=== PATIENT | male | born 1960 | race Caucasian/White ===

== ENCOUNTER → 2017-06-07 | Outpatient (CLI) | payer BC | END | disposition home or self-care (01) | LOC: GMAB 10:43 | PROVIDERS: ATTEND Family Medicine | DX: Z00.01 Encounter for general adult medical examination with abnormal findings (principal) ==

== ENCOUNTER → 2018-03-19 | Outpatient (CLI) | payer OTHER ==
--- NOTE | 2018-03-19 15:44 | MRI ---
EXAM DESCRIPTION: Lumbar Spine w/o Contrast : Magnetic Resonance Imaging. CLINICAL HISTORY: SCIATICA COMPARISON: CT scan abdomen and pelvis without and with IV contrast. TECHNIQUE: Multiplanar, multiple standard sequences, non contrast MRI, lumbar spine. FINDINGS: Transitional appearance of the lumbar sacral spine. Based upon ribs that are visible on the sagittal images, and on axial images on the prior abdominal pelvic CT scan, the L5-S1 level is determined to be seen on the T2 sequence axial 501, image 6. The S1 sacral segment is partially lumbarized with a rudimentary S1-2 disc on the same axial sequence, image 3. These designations should be confirmed by clinical history and examination and comparison with AP thoracic spine for rib counting purposes. S1-2 foramina bilaterally are lumbarized. Arthrosis in the right S1-S2 facet with adjacent soft tissue edema. L5-S1: Trace anterolisthesis with disc degeneration. Arthrosis of the right facet and flavum ligament hypertrophy and posterior soft tissue edema. 8 mm synovial cyst impressing on the right thecal sac and the right S1 nerve visit enters the right subarticular recess which is also narrowed. Minimal shift of the thecal sac to the left of midline. Left foraminal stenosis and moderate right foraminal narrowing. Near stenosis of the right paracentral canal. Marrow edema in the right pedicle. L4-5: Disc desiccation with disc space maintained. No bulging. Minimal arthrosis of the facets and hypertrophy of the flavum ligaments. Mild to moderate canal narrowing. Moderate foraminal narrowing. Marrow edema in the L4 right pedicle. L3-4: Disc desiccation with disc space maintained. Anterior bulging with spurs and Modic type II endplate reactive changes on the superior L4 endplate. Minimal effusion in the right facet joint. Mild canal narrowing interpreted to be due to shortened pedicles. Moderate left foraminal narrowing and mild right foraminal narrowing. L2-3: Normal signal in the disc with anterior disc space loss and hypertrophic bone changes. No posterior bulging. Moderate right foraminal narrowing and mild left foraminal narrowing. L1-2: Disc space preserved with normal signal in the disc. Anterior right side disc bulge no posterior bulge. Posterior elements unremarkable. Canal and foramina are patent. Conus terminates at this level. T12-L1: Normal signal in the disc with disc space preserved. Posterior elements unremarkable. Canal and foramina are patent. No significant problems with alignment. Paravertebral soft tissues unremarkable.. Otherwise normal marrow signal in the remaining vertebral bodies and the posterior elements. Vertebral bodies are not compressed at any level. IMPRESSION: 1. Transitional lumbosacral segment is presumed to be a lumbarized S1 segment for the purposes of this report. This is based upon visualization of ribs on this study and prior abdominal pelvic CT scan. Consider correlation with AP thoracic spine radiographs for rib counting purposes. 2. Inflammatory changes in the right L5-S1 facet joint with synovial cyst impressing on the right thecal sac and descending right S1 nerve in the canal and the lateral recess. Borderline right paracentral canal stenosis. Bilateral foraminal bony morphology with bulging disc resulting in left foraminal stenosis. Marrow edema in the right L5 pedicle which could be stress related. 3. Minimal arthrosis of the facets and hypertrophy of the flavum ligaments. Moderate foraminal narrowing. Marrow edema in the right L4 pedicle. 4. Anterior disc bulging and spondylosis at multiple levels. Moderate left foraminal narrowing L3-4 and moderate right foraminal narrowing L2-3. Electronically signed by: Cedric Lazo MD 03/19/2018 3:43 PM CDT
--- NOTE | 2018-03-20 14:53 | MRI ---
EXAM DESCRIPTION: MRI right hip CLINICAL HISTORY: Right hip pain. Sciatica COMPARISON: None. TECHNIQUE: Multiplanar, multisequence MR images of the right hip FINDINGS: Nonspherical anterior superior femoral head neck junction predisposing to femoroacetabular impingement. Minimal osseous edema anteriorly likely impingement related Tear of the labrum anterior superior with a small cleft of high signal undermining the base of the labrum. Blunting of the anterior superior labrum. Superior lateral and posterior labrum intact No full-thickness chondrosis or chronic osteochondral lesion of the femoral head or acetabulum. No osseous edema. Minimal joint fluid Tendinosis and chronic interstitial insertional partial tear of the gluteus minimus and gluteus medius tendon insertions on the greater trochanter. Trochanteric bursal edema without fluid. Remaining tendon attachments to the femur are normal. Interval chronic common hamstring tendinosis No pelvic soft tissue mass lesion, adenopathy or free fluid. Central prostate hypertrophy. 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 Tear of the anterior superior labrum Chronic tendinosis and interstitial partial tear of the gluteus minimus and gluteus medius insertion Electronically signed by: Paco Soliman MD 03/20/2018 2:52 PM CDT
== END ==
LOC: MRI 13:03
PROVIDERS: ATTEND Family Medicine
DX: M54.31 Sciatica, right side (principal); M51.26 Other intervertebral disc displacement, lumbar region; M71.38 Other bursal cyst, other site; M47.896 Other spondylosis, lumbar region

== ENCOUNTER 2018-04-05 18:46 | Emergency (ER) | payer OTHER ==
--- NOTE | 2018-04-05 19:20 | ED.PDOC ---
History of Present Illness - General Chief Complaint: Back Pain or Injury Stated Complaint: low back pain, and unable to void Time Seen by Provider: 04/05/18 19:15 Source: patient Exam Limitations: no limitations - History of Present Illness Timing/Duration: other - two weeks Severity: severe Improving Factors: movement - pt urinates well during the day when active Worsening Factors: rest - has urinary retention symptoms at night with incomplete emptying Associated Symptoms: other - has radicular pain into R leg since January 2018. Denies numbness to groin or urinary incontinence Home Medications: Ambulatory Orders Methylprednisolone [Medrol Dose Gregory] 4 mg PO DAILY 6 Days #21 tab 04/05/18 Tamsulosin HCl [Flomax] 0.4 mg PO BEDTIME #14 cap 04/05/18 Review of Systems - Review of Systems Constitutional: Denies: fever, weakness EENTM: States: no symptoms reported Respiratory: States: no symptoms reported Cardiology: States: no symptoms reported Gastrointestinal/Abdominal: Denies: abdominal pain, constipation, diarrhea, nausea Genitourinary: States: see HPI. Denies: discharge, dysuria Musculoskeletal: States: no symptoms reported Skin: States: no symptoms reported Neurological: States: see HPI, numbness - in R lower leg intermittantly Endocrine: States: no symptoms reported Hematologic/Lymphatic: States: no symptoms reported Past Medical History (General) - Patient Medical History Hx Hypertension: Yes Hx Diabetes: Yes Surgical History: no surgical history - Vaccination History Hx Tetanus, Diphtheria Vaccination: No Hx Influenza Vaccination: No Hx Pneumococcal Vaccination: No - Social History Hx Tobacco Use: Yes Hx Alcohol Use: Yes - Triage Comment ED Triage Comment: Pt reports having chronic low back pain that is caused by a cyst located in his l4-l5 area of back. Pt has chronic pain, numbness and tingling down his legs at rest. Now he states it is becoming harder to void. He is having to strain to urinate and is afraid to cause any more injury by straining. Pt is scheduled to have cyst removed in a couple of weeks. Pt just requesting something to help him void with ease. Pt stated that during daily activities he has no pain, however at night when he goes to bed, pain increases and is very hard to relax and get comfortable. He is awake every hr of night due to pain. Family Medical History - Family History Father Hx Family Diabetes: Yes Hx Family Cancer: Yes Physical Exam - Physical Exam General Appearance: Alert, Anxious Gastrointestinal/Abdominal: non tender Back Exam: normal inspection, no CVA tenderness, no vertebral tenderness Extremity: non-tender, normal inspection, no pedal edema, no calf tenderness Neurologic: alert, normal mood/affect, oriented x 3, other - no sensory deficit in legs, normal strength in bilat legs to dorsiflexion and plantar flexion DTR: 1+: Achilles, right, 2+: Patellar, right Skin Exam: normal color, warm/dry Lymphatic: no adenopathy Departure - Departure Clinical Impression: Urinary bladder disorder Sciatica Qualifiers: Laterality: right Qualified Code(s): M54.31 - Sciatica, right side Disposition: Discharge to Home or Self Care Condition: Fair Departure Forms: ED Discharge - Pt. Copy, Patient Portal Self Enrollment Instructions: DI for Low Back Pain Referrals: IDA LOO MD [Primary Care Provider] - 1-2 Weeks Prescriptions: Methylprednisolone [Medrol Dose Gregory] 4 mg PO DAILY 6 Days #21 tab Tamsulosin HCl [Flomax] 0.4 mg PO BEDTIME #14 cap Home Medications: Ambulatory Orders Methylprednisolone [Medrol Dose Gregory] 4 mg PO DAILY 6 Days #21 tab 04/05/18 Tamsulosin HCl [Flomax] 0.4 mg PO BEDTIME #14 cap 04/05/18
[2018-04-05] MEDS ORDERED: TAMSULOSIN 0.4 MG CAP PO ONE (19:57)
[2018-04-05 20:39] VITALS: BP 142/89; TEMP 94.6; O2SAT 96
== END 2018-04-05 20:10 | disposition home or self-care (01) ==
LOC: ER 18:46
DX: N32.9 Bladder disorder, unspecified (principal); M54.41 Lumbago with sciatica, right side; R33.9 Retention of urine, unspecified; G89.29 Other chronic pain; E11.9 Type 2 diabetes mellitus without complications; I10 Essential (primary) hypertension

== ENCOUNTER → 2018-05-31 | Outpatient (CLI) | payer OTHER | LOC: GMAE 10:46 | PROVIDERS: ATTEND Family Medicine | DX: Z00.01 Encounter for general adult medical examination with abnormal findings (principal) ==

== ENCOUNTER → 2018-07-30 | Outpatient (CLI) | payer OTHER ==
--- NOTE | 2018-07-31 08:34 | MRI ---
EXAM DESCRIPTION: Lumbar Spine w/o Contrast : Magnetic Resonance Imaging. CLINICAL HISTORY: SYNOVIAL CYST OF LUMBAR SPINE COMPARISON: MRI scan lumbar spine 03/19/2018. TECHNIQUE: Multiplanar, multiple standard sequences, non contrast MRI, lumbar spine. FINDINGS: Based on prior MRI scan, the L5-S1 disc space is visualized on axial T2 series 501, image 8. Rudimentary S1-S2 disc is visualized on the same axial series, image 3. Postoperative appearance of the right L5-S1 facet with synovial cyst removed. Granulation tissue noted around the facet and the posterior surgical bed, hyperintense on STIR sagittal more than T2 sequences. No fluid collection. Minimal thickening of the left flavum ligament with normal left facet. Grade 1 anterolisthesis again noted, 2 mm. Desiccation of the disc with posterior broad-based bulge. AP canal diameter 11 mm. Moderate to severe narrowing of the right foramen with posterior granulation tissue. Also moderate to severe narrowing left foramen. Hyperintense STIR signal bilateral L5 pedicles and partially in the bilateral S1 pedicles. The signal in the left S1 and L5 pedicles is new since the prior study. L4-5: Mild disc desiccation with disc space preserved. Minimal bulge of the disc into the bilateral foramina with moderate narrowing more narrowing left than right. AP canal diameter 13 mm. Flavum ligament hypertrophy. L3-4: Disc desiccation and disc space preserved. Anterior disc bulge with anterior endplate spurs and Modic type II endplate reactive changes. Posterior flavum ligament hypertrophy. Moderate narrowing left foramen with disc bulging and abutting the nerve root. Mild to moderate narrowing right foramen. AP canal diameter 13 mm. L2-3: Disc desiccation with disc space preserved. Anterior disc bulge and anterior spurs. Mild bilateral foraminal narrowing and mild canal narrowing. L1-L2: Disc space preserved with normal signal in the disc. Minimal anterior bulge to the right of midline but no posterior bulge. Posterior elements are unremarkable. Canal and foramina are patent. Conus terminates at this level. T12-L1: Normal signal in the disc with disc space preserved. Posterior elements unremarkable. Canal and foramina are patent. Minimal curvature. Paravertebral soft tissues unremarkable except for postsurgical changes abutting the right L5-S1 facet.. Otherwise normal marrow signal in the remaining vertebral bodies and the posterior elements. Vertebral bodies are not compressed at any level. IMPRESSION: 1. Again noted is partially lumbarized S1 segment with S1-S2 rudimentary disc. Edema like signal in the left S1 and left L5 pedicles new since the prior study and could represent stress injury. 2. Large synovial cyst seen previously originating from the right L5-S1 facet has been excised. Postsurgical changes in the facet and in the adjacent surgical bed. No definite fluid collections. 3. Again noted is multiple levels of foraminal narrowing, L5-S1, L4-5, and L3-4, more left than right with granulation tissue encroaching on the left L5 nerve root in the L5-S1 foramen. Disc bulge encroaching on the left foramina and associated nerve root at L4-5 and L3-4. Similar findings on the prior study. Electronically signed by: Cedric Lazo MD 07/31/2018 8:31 AM [facility]
== END ==
LOC: MRI 10:55
PROVIDERS: ATTEND Anesthesiology Pain Medicine
DX: M71.38 Other bursal cyst, other site (principal); M51.86 Other intervertebral disc disorders, lumbar region; Z98.890 Other specified postprocedural states

== ENCOUNTER → 2018-10-03 | Outpatient (CLI) | payer OTHER ==
--- NOTE | 2018-10-04 07:00 | RAD ---
EXAM DESCRIPTION: Lumbar Spine 3 Views CLINICAL HISTORY: 58 years Male, SYNOVIAL CYST LUMBAR SPINE COMPARISON: MRI July 30, 2018 FINDINGS: Three views of the lumbar spine show no vertebral body fracture or subluxation. There are marginal osteophytes at multiple levels in the lumbar spine with mild disc space narrowing L5-S1. Spinous and transverse processes are intact. Transitional anatomy is noted at the lumbosacral junction with left-sided pseudoarthrosis formation. The sacroiliac joints are unremarkable. IMPRESSION: Mild multilevel degenerative changes without vertebral body fracture or subluxation. Electronically signed by: Adolph Gleason MD 10/04/2018 6:58 AM CDT
== END ==
LOC: RAD 09:21
PROVIDERS: ATTEND Neurological Surgery
DX: M71.38 Other bursal cyst, other site (principal); M51.36 Other intervertebral disc degeneration, lumbar region

== ENCOUNTER 2018-12-26 05:50 | Day surgery (SDC) | payer OTHER ==
[2018-12-26] MEDS ORDERED: LACTATED RINGERS 1,000 ML ONE (06:07)
[2018-12-26] MEDS ORDERED: PROPOFOL 200 MG/20 ML VIAL IV ONE (07:00)
[2018-12-26] MEDS ORDERED: LIDOCAINE 1% 10 ML VIAL INJ ONE (07:00)
[2018-12-26] MEDS ORDERED: LACTATED RINGERS 1,000 ML IVS ONE (10:50)
[2018-12-26 14:37] VITALS: BP 129/69; TEMP 97.2; O2SAT 98
--- NOTE | 2018-12-27 08:02 | OP ---
DATE OF PROCEDURE: 12/26/18 PREOPERATIVE DIAGNOSIS: 1. Family history of colonic polyps in his father. This is the patient's first colonoscopy. POSTOPERATIVE DIAGNOSIS: 1. Suboptimal prep. 2. External hemorrhoids and skin tags. PROCEDURE: 1. Colonoscopy. SURGEON: Jesus Villa MD. COMPLICATIONS: None apparent. BLOOD LOSS: None. MEDICATIONS: Monitored anesthesia care. DESCRIPTION OF PROCEDURE: Informed consent was obtained prior to sedation. The preprocedure cardiopulmonary assessment was satisfactory. The patient was placed in the left lateral decubitus position and was sedated. Perianal exam reveals noninflamed external hemorrhoids and some skin tags. A digital rectal exam was otherwise unremarkable. The tip of the Olympus colonoscope was inserted in the rectum and guided over to the cecum. The cecum was identified by locating the ileocecal valve and appendiceal orifice. There was no solid stool in the colon, but the prep was definitely suboptimal. There was a film of dark residue coating most of the right colon. I think we would be able to recognize colon cancer in this patient, but small polyps could have been overlooked by the remaining residue. The colon mucosa was irrigated profusely trying to allow for better visualization. In the left colon, there was fluid retained and this was suctioned away. There were no polyps or other pathology seen in the colon. The procedure was then terminated. RECOMMENDATIONS: Followup colonoscopy in 5 years because of the family history of polyps and because his prep was not ideal. For the next colonoscopy, he will need a more vigorous prep. #[id number] cc: Malorie Delgado MD [facility]
== END 2018-12-26 12:45 | disposition home or self-care (01) ==
LOC: AMB 05:50
PROVIDERS: ATTEND Internal Medicine Gastroenterology
DX: Z12.11 Encounter for screening for malignant neoplasm of colon (principal); K64.4 Residual hemorrhoidal skin tags; I10 Essential (primary) hypertension; E11.9 Type 2 diabetes mellitus without complications; Z83.71 Family history of colonic polyps; Z79.84 Long term (current) use of oral hypoglycemic drugs; Z79.82 Long term (current) use of aspirin; Z79.899 Other long term (current) drug therapy
CPT/HCPCS: 00812; 36416; 45378; 82948; J3490; J7120

== ENCOUNTER → 2019-07-10 | Outpatient (CLI) | payer OTHER | LOC: GMAE 11:56 | PROVIDERS: ATTEND Family Medicine | DX: Z12.5 Encounter for screening for malignant neoplasm of prostate (principal); I10 Essential (primary) hypertension; E78.2 Mixed hyperlipidemia; E11.9 Type 2 diabetes mellitus without complications ==

== ENCOUNTER → 2020-07-09 | Outpatient (CLI) | payer OTHER | LOC: GMAE 10:32 | PROVIDERS: ATTEND Family Medicine | DX: Z00.00 Encounter for general adult medical examination without abnormal findings (principal) ==